=== PATIENT | male | born 1945 | race Two or more races ===

== ENCOUNTER 2018-01-28 16:35 | Inpatient (IN) | payer OTHER ==
[~2018-01-28] VITALS: Ht 165.1 cm; Wt 60.3 kg
[2018-02-13] MEDS ORDERED: PERCOCET 5-3251 EACH PO (08:29)
[2018-02-13] MEDS ORDERED: INTESTINEX680 M1 PO (08:29)
== END 2018-02-13 13:33 | disposition home or self-care (01) | DRG 331 ==
LOC: EDSTATUS 02-04 13:15 → CIR.AMB 02-08 13:15 → EDSTATUS 02-08 13:15 → SURG 02-09 05:34 → O/R 02-09 05:34 → SURH 02-09 07:00 → SURG 02-09 11:42 → SURH 02-09 13:15 → SURG 02-13 13:33
PROVIDERS: Surgery
PROC: 07TC4ZZ Resection of Pelvis Lymphatic, Percutaneous Endoscopic Approach (ICD-10-PCS; 2018-02-09)
PROC: 0DJD8ZZ Inspection of Lower Intestinal Tract, Via Natural or Artificial Opening Endoscopic (ICD-10-PCS; 2018-02-09)
PROC: 0DTN4ZZ Resection of Sigmoid Colon, Percutaneous Endoscopic Approach (ICD-10-PCS; principal; 2018-02-09 07:00)
DX: C18.7 Malignant neoplasm of sigmoid colon (principal); R59.0 Localized enlarged lymph nodes

== ENCOUNTER → 2018-02-08 | Day surgery (SDC) | payer OTHER ==
[~2018-02-08] MED LIST: INTESTINEX680 M1 PO; PERCOCET 5-3251 EACH PO
== END | disposition home or self-care (01) ==
LOC: ADM 02-04 14:45 → AMB-ENDOS 06:10
DX: C18.7 Malignant neoplasm of sigmoid colon (principal)

== ENCOUNTER 2018-02-20 18:30 | Emergency (ER) | payer OTHER ==
[~2018-02-20] VITALS: Ht 165.1 cm; Wt 60.3 kg
== END 2018-02-21 07:17 | disposition home or self-care (01) ==
LOC: ER 18:30
DX: G89.18 Other acute postprocedural pain (principal); R10.84 Generalized abdominal pain

== ENCOUNTER 2018-02-24 16:29 | Inpatient (IN) | payer OTHER ==
[~2018-02-24] VITALS: Ht 165.1 cm; Wt 59.0 kg
[2018-02-24] MEDS ORDERED: BENTYL10 MG/1 ML (16:41)
== END 2018-03-03 19:23 | disposition home or self-care (01) | DRG 389 ==
LOC: ER 16:29 → SEC-K 02-25 07:14 → SURH 02-26 13:10
PROC: BW21ZZZ Computerized Tomography (CT Scan) of Abdomen and Pelvis (ICD-10-PCS; principal; 2018-02-25)
PROC: 02HV33Z Insertion of Infusion Device into Superior Vena Cava, Percutaneous Approach (ICD-10-PCS; 2018-02-26)
DX: K56.690 Other partial intestinal obstruction (principal); C18.7 Malignant neoplasm of sigmoid colon; N20.0 Calculus of kidney

== ENCOUNTER → 2018-03-25 | Outpatient (CLI) | payer OTHER ==
[~2018-03-25] MED LIST changes: +BENTYL10 MG/1 ML; +GASTRACE CAPSU1 EACH PO
== END | disposition home or self-care (01) ==
LOC: NUCLEAR 07:49
DX: C18.9 Malignant neoplasm of colon, unspecified (principal)
CPT/HCPCS: 78816; A9552

== ENCOUNTER → 2018-03-26 | Day surgery (SDC) | payer OTHER | END | disposition home or self-care (01) | LOC: CIR.AMB 05:40 | DX: C18.7 Malignant neoplasm of sigmoid colon (principal) | CPT/HCPCS: 36561; C1751 ==

== ENCOUNTER 2018-12-02 07:21 | Outpatient (CLI) | payer OTHER | END 2018-12-02 07:38 | disposition home or self-care (01) | LOC: NUCLEAR 07:21 | DX: C18.7 Malignant neoplasm of sigmoid colon (principal); Z08 Encounter for follow-up examination after completed treatment for malignant neoplasm | CPT/HCPCS: 78816; A9552 ==

== ENCOUNTER 2019-09-19 06:00 | Day surgery (SDC) | payer OTHER | END 2019-09-19 11:50 | disposition home or self-care (01) | LOC: AMB-ENDOS 06:00 | PROVIDERS: ATTEND Surgery | DX: C18.7 Malignant neoplasm of sigmoid colon (principal) ==

== ENCOUNTER 2020-05-03 07:21 | Outpatient (CLI) | payer OTHER | END 2020-05-03 07:32 | disposition home or self-care (01) | LOC: NUCLEAR 07:21 | PROVIDERS: ATTEND Internal Medicine | DX: C18.8 Malignant neoplasm of overlapping sites of colon (principal) | CPT/HCPCS: 78816; A9552 ==

== ENCOUNTER → 2021-05-24 | Outpatient (CLI) | payer OTHER | END | disposition home or self-care (01) | LOC: NUCLEAR 07:00 | PROVIDERS: ATTEND Internal Medicine | DX: Z85.038 Personal history of other malignant neoplasm of large intestine (principal) | CPT/HCPCS: 78813; A9552 ==

== ENCOUNTER 2021-10-24 07:23 | Outpatient (CLI) | payer OTHER | END 2021-10-24 07:28 | disposition home or self-care (01) | LOC: NUCLEAR 07:23 | PROVIDERS: ATTEND Internal Medicine | DX: C18.9 Malignant neoplasm of colon, unspecified (principal) | CPT/HCPCS: 78812; A9552 ==

== ENCOUNTER → 2022-05-15 07:16 | Outpatient (CLI) | payer OTHER ==
[~2022-05-15 07:16] MED LIST changes: +DAILY VALUE1 EACH PO; +VITAMIN D PO
== END | disposition home or self-care (01) ==
LOC: NUCLEAR 07:00
PROVIDERS: ATTEND Internal Medicine
DX: C18.9 Malignant neoplasm of colon, unspecified (principal)
CPT/HCPCS: 78816; A9552

== ENCOUNTER 2022-09-25 07:21 | Outpatient (CLI) | payer OTHER | END 2022-09-25 07:22 | disposition home or self-care (01) | LOC: NUCLEAR 07:21 | PROVIDERS: ATTEND Internal Medicine | DX: C18.9 Malignant neoplasm of colon, unspecified (principal) | CPT/HCPCS: 78815; A9552 ==

== ENCOUNTER 2023-02-23 07:16 | Outpatient (CLI) | payer OTHER | END 2023-02-23 07:18 | disposition home or self-care (01) | LOC: NUCLEAR 07:16 | PROVIDERS: ATTEND Internal Medicine | DX: C18.9 Malignant neoplasm of colon, unspecified (principal) | CPT/HCPCS: 78815; A9552 ==